=== PATIENT | male | born 1950 | race Hispanic/Latino ===

== ENCOUNTER 2017-04-24 15:46 | Emergency (ER) | payer OTHER ==
[2017-04-24 18:10] LABS: Basophils % (Auto) 0.6 % (0.0-1.8); Eosinophils % (Auto) 3.8 % (0.0-4.3); Hematocrit 32.2 % (35.5-45.6); Hemoglobin 10.8 gm/dl (11.8-15.2); Mean Corpuscular HGB Conc 34 % (32-34); Mean Corpuscular Hemoglobin 32 pg (28-32); Mean Corpuscular Volume 97 fl (84-94); Platelet Count 286 K/mm3 (140-440); Red Blood Count 3.33 M/mm3 (3.65-5.03); Red Cell Distribution Width 15.7 % (13.2-15.2); White Blood Count 6.8 K/mm3 (4.5-11.0)
[2017-04-24 18:21] LABS: INR 0.99 (0.87-1.13)
[2017-04-24 18:22] LABS: Partial Thromboplastin Time 38.2 Sec. (24.2-36.6)
[2017-04-24 18:32] LABS: Alanine Aminotransferase 23 units/L (7-56); Albumin 3.8 g/dL (3.9-5); Albumin/Globulin Ratio 1.1 %; Alkaline Phosphatase 74 units/L (35-129); Anion Gap 20 mmol/L; BUN/Creatinine Ratio 11; Blood Urea Nitrogen 9 mg/dL (9-20); Calcium 9.1 mg/dL (8.4-10.2); Carbon Dioxide 25 mmol/L (22-30); Chloride 100.9 mmol/L (98-107); Glucose 112 mg/dL (75-100); Lipase 25 units/L (13-60); Potassium 4.7 mmol/L (3.6-5.0); Sodium 141 mmol/L (137-145); Total Protein 7.4 g/dL (6.3-8.2)
[2017-04-24 23:14] LABS: Bacteria,Urine 1+ /HPF (Negative); Bilirubin,Urine NEG (Negative); Blood,Urine LG (Negative); Ketones,Urine NEG (Negative); Leukocyte Esterase,Urine TR (Negative); Nitrite,Urine NEG (Negative); Urobilinogen,Urine < 2.0 mg/dL (<2.0)
--- NOTE | 2017-04-24 23:22 | Emergency Department Report ---
ED Abdominal Pain HPI - General Chief Complaint: Abdominal Pain Stated Complaint: URINATING BLOOD Time Seen by Provider: 04/24/17 23:12 Source: patient Mode of arrival: Ambulatory Limitations: No Limitations - History of Present Illness Initial Comments: Patient is 66-year-old male history of hypertension, coronary artery disease brain aneurysm surgery. Patient presented to the ER with 2 day history of suprapubic pain and passing clots when he urinates. Patient stated that he had a fever 2 days ago he called his primary care physician and he put him on antibiotic. He stated that his pain better. Patient denied nausea vomiting or diarrhea. MD Complaint: abdominal pain -: days(s) Location: suprapubic Radiation: none Migration to: no migration Severity: moderate - Related Data Home Medications Medication Instructions Recorded Confirmed Last Taken Ergocalciferol [Vitamin D2] 50,000 units PO QWEEK 02/10/17 02/10/17 Unknown Ipratropium/Albuter (Nf) 1 puff QID 02/10/17 02/10/17 Unknown [Combivent Inhaler] Lisinopril [Zestril] 40 mg PO QDAY 02/10/17 02/10/17 Unknown Previous Rx's Medication Instructions Recorded Last Taken Type Aspirin EC [Aspirin Enteric Coated 325 mg PO QDAY #30 tablet 02/11/17 Unknown Rx TAB] AtorvaSTATin [Lipitor] 80 mg PO QHS #60 tablet 02/11/17 Unknown Rx Clopidogrel [Plavix] 75 mg PO QDAY #30 tablet 02/11/17 Unknown Rx Famotidine [Pepcid] 20 mg PO QDAY #30 tablet 02/11/17 Unknown Rx Metoprolol [Lopressor TAB] 12.5 mg PO BID #60 tablet 02/11/17 Unknown Rx Allergies Allergy/AdvReac Type Severity Reaction Status Date / Time Penicillins AdvReac Hives Verified 04/24/17 15:52 ED Review of Systems ROS: Stated complaint: URINATING BLOOD Other details as noted in HPI Comment: All other systems reviewed and negative Constitutional: denies: chills, fever Respiratory: denies: cough, shortness of breath, SOB with exertion Cardiovascular: denies: chest pain, palpitations, dyspnea on exertion, edema, paroxysmal nocturnal dyspnea Gastrointestinal: abdominal pain. denies: nausea, vomiting, diarrhea, constipation, hematemesis Genitourinary: urgency, frequency, hematuria. denies: testicular pain, testicular mass Musculoskeletal: denies: back pain Neurological: denies: headache ED Past Medical Hx - Past Medical History Previous Medical History?: Yes Hx Hypertension: Yes Hx Heart Attack/AMI: Yes Hx HIV: No Additional medical history: brain aneurysm - Surgical History Past Surgical History?: Yes Hx Coronary Stent: Yes Additional Surgical History: brain surgery - Social History Smoking Status: Current Every Day Smoker Substance Use Type: None - Medications Home Medications: Home Medications Medication Instructions Recorded Confirmed Last Taken Type Ergocalciferol [Vitamin D2] 50,000 units PO QWEEK 02/10/17 02/10/17 Unknown History Ipratropium/Albuter (Nf) 1 puff QID 02/10/17 02/10/17 Unknown History [Combivent Inhaler] Lisinopril [Zestril] 40 mg PO QDAY 02/10/17 02/10/17 Unknown History Aspirin EC [Aspirin Enteric Coated 325 mg PO QDAY #30 tablet 02/11/17 Unknown Rx TAB] AtorvaSTATin [Lipitor] 80 mg PO QHS #60 tablet 02/11/17 Unknown Rx Clopidogrel [Plavix] 75 mg PO QDAY #30 tablet 02/11/17 Unknown Rx Famotidine [Pepcid] 20 mg PO QDAY #30 tablet 02/11/17 Unknown Rx Metoprolol [Lopressor TAB] 12.5 mg PO BID #60 tablet 02/11/17 Unknown Rx ED Physical Exam - General Limitations: No Limitations General appearance: alert, in no apparent distress - Head Head exam: Present: normocephalic, normal inspection - Eye Eye exam: Present: normal appearance, PERRL - ENT ENT exam: Present: normal exam - Neck Neck exam: Present: normal inspection - Respiratory Respiratory exam: Present: normal lung sounds bilaterally. Absent: respiratory distress, wheezes, rales, rhonchi, chest wall tenderness, accessory muscle use, decreased breath sounds, prolonged expiratory - Cardiovascular Cardiovascular Exam: Present: regular rate, normal rhythm, normal heart sounds - GI/Abdominal GI/Abdominal exam: Present: soft, tenderness (suprapubic), normal bowel sounds. Absent: distended, guarding, rebound, rigid, diminished bowel sounds, organomegaly, mass, bruit, pulsatile mass, hernia - Extremities Exam Extremities exam: Present: normal inspection, full ROM, normal capillary refill - Back Exam Back exam: Present: normal inspection. Absent: CVA tenderness (R), CVA tenderness (L) - Neurological Exam Neurological exam: Present: alert, oriented X3, CN II-XII intact, normal gait - Skin Skin exam: Present: warm, intact, normal color ED Course Vital Signs 04/24/17 04/24/17 04/24/17 15:52 21:45 21:50 Temperature 97.5 F L Pulse Rate 75 69 Respiratory 16 16 16 Rate Blood Pressure 103/59 150/78 O2 Sat by Pulse 97 98 99 Oximetry 04/24/17 04/24/17 04/24/17 22:00 22:30 23:00 Temperature Pulse Rate 61 61 65 Respiratory 21 21 26 H Rate Blood Pressure 145/75 144/71 145/73 O2 Sat by Pulse 97 95 95 Oximetry 04/24/17 23:39 Temperature Pulse Rate 76 Respiratory 13 Rate Blood Pressure 145/73 O2 Sat by Pulse 100 Oximetry ED Medical Decision Making - Lab Data Result diagrams: 04/24/17 15:58 04/24/17 15:58 - Radiology Data Radiology results: report reviewed CT abdomen and pelvis showed bilateral kidney stones Critical care attestation.: If time is entered above; I have spent that time in minutes in the direct care of this critically ill patient, excluding procedure time. ED Disposition Clinical Impression: Abdominal pain, Kidney stone Disposition: DC-01 TO HOME OR SELFCARE Is pt being admited?: No Condition: Stable Instructions: Kidney Stones (ED) Referrals: PRIMARY CARE, [Primary Care Provider] - 3-5 Days
--- NOTE | 2017-04-25 00:29 | Cat Scan Report ---
FINAL REPORT PROCEDURE: CT ABDOMEN PELVIS WO CON TECHNIQUE: Computerized axial tomography of the abdomen and pelvis was performed without intravenous contrast. This study is performed without intravascular contrast material and its sensitivity for abdominal and pelvic pathology, including neoplasms, inflammation, abscess, free fluid, thrombosis, arterial dissection and infarction, is reduced compared with a contrast enhanced study. DLP 471.82 mGy-cm. HISTORY: Abdominal pain. Hematuria. COMPARISON: No prior studies are available for comparison. FINDINGS: Visualized lower thorax: Coronary artery disease. Bibasilar ground-glass opacities. Liver: Normal size and attenuation. Spleen: Normal size and attenuation. Gallbladder and biliary system: Normal. Pancreas: Normal. Adrenals: Normal. Kidneys: Bilateral renal calculi. The largest on the right measures 8.3 x 4.3 millimeters. The largest on the left measures 3 millimeters. Possible subtle area of low attenuation in the left kidney measuring 10 millimeters. GI tract: Not definite, possible tiny normal caliber air-filled appendix. Stool throughout the colon. Lymph nodes and mesentery: Normal. Vasculature: Moderate atherosclerosis. Distal thoracic aorta 3.1 centimeters. Proximal abdominal aorta 2.6 centimeters. Abdominal aorta at approximately the level of the renal arteries 4.3 centimeters. Infrarenal abdominal aorta 4.3 centimeters. Abdominal aorta just above the bifurcation 3.6 centimeters. Subtle focal outpouching about the posterior left distal abdominal aorta. Right common iliac artery 2 centimeters. Left common iliac artery 1.8 centimeters. Right common iliac artery just proximal to the bifurcation into the internal external iliac arteries 2.9 centimeters. Bladder: Moderate bladder distension. Reproductive organs: Prostate is enlarged. Peritoneum: No free fluid. Musculoskeletal structures: Mild L3-4 and L4-5 disc bulges. Small multilevel osteophytes and Schmorl's nodes. Right L5-S1 pseudoarthrosis or prior trauma with sclerosis at the site of lucency. Bony remodeling of the left 8th-10 ribs. Other: None. IMPRESSION: Coronary artery disease. Bibasilar ground-glass opacities. Bilateral nonobstructing renal calculi. Possible area of low-attenuation left kidney, consider contrasted examination or MRI for further characterization if there is continued clinical concern and patient has no contraindication to MRI. Stool throughout the colon. 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 Possible subtle focal outpouching about the posterior left distal abdominal aorta. Consider CTA for further characterization if there is continued clinical concern. Moderate bladder distention. Prostatic enlargement.
[2017-04-25 01:00] VITALS: BP 116/64
== END 2017-04-25 01:03 | disposition home or self-care (01) ==
LOC: ED 15:46
DX: N20.0 Calculus of kidney (principal); R10.30 Lower abdominal pain, unspecified; I10 Essential (primary) hypertension; I50.9 Heart failure, unspecified; F17.200 Nicotine dependence, unspecified, uncomplicated
CPT/HCPCS: 36415; 74176; 80053; 81001; 83690; 85025; 85610; 85730